=== PATIENT | female | born 1940 | race Caucasian/White ===

== ENCOUNTER 2017-12-25 12:24 | Emergency (ER) | payer OTHER ==
[~2017-12-25] VITALS: Ht 157.5 cm; Wt 84.0 kg
[~2017-12-25 12:24] MED LIST: CALCTAB5 PO; CHOL2000 PO; PHYT500C PO
[2017-12-25 12:32] VITALS: TEMP 36.3; Ht 157.5 cm; Wt 84.0 kg
[2017-12-25] MEDS ORDERED: SODIUM CHLORIDE 0.9% 1000ML 1,000 ML IV STA (12:53)
[2017-12-25] MEDS ORDERED: SODIUM CHLORIDE 0.9% 500ML 500 ML IV STA (13:22)
[2017-12-25] MEDS ORDERED: ONDANSETRON INJ 2 MG/ML 2 ML VIAL IV STA (13:22)
--- NOTE | 2017-12-25 13:53 | DIAGNOSTIC IMAGING REPORT ---
CHEST ONE VIEW PORTABLE CLINICAL HISTORY: 77 years-old Female presenting with EVALUATE WEAKNESS. TECHNIQUE: Portable upright AP view of the chest was obtained. COMPARISON: 08/31/2015. FINDINGS: Atherosclerosis of aortic arch. Cardiac silhouette enlarged. Right retrocardiac opacity, indeterminate. No other focal opacity. No large pleural effusion or pneumothorax. Osseous structures normal. Upper abdomen normal. IMPRESSION: 1. Possible right retrocardiac opacity, which may have been present on prior exam, possibly vascular in etiology. Apart from this, no convincing evidence of acute cardiopulmonary disease. Electronically signed by: Gavin Kirkland M.D. 12/25/2017 1:52 PM Dictated Date/Time: 12/25/2017 1:50 PM
[2017-12-25 14:10] LABS: BASO % 0.2 %; BASO ABS # 0.03 K/uL (0-0.2); EOS % 0.7 %; HEMATOCRIT 41.5 % (37-47); HEMOGLOBIN 14.2 g/dL (12.0-16.0); IG# 0.06 K/uL (0.00-0.02); LYMPH % 8.7 %; LYMPH ABS # 1.31 K/uL (1.2-3.4); MEAN CELL VOLUME 95.8 fL (80-100); MEAN CORPUSCULAR HEMOGLOBIN 32.8 pg (25-34); MEAN CORPUSCULAR HGB CONC 34.2 g/dl (32-36); MEAN PLATELET VOLUME 9.3 fL (7.4-10.4); MONO % 4.7 %; MONO ABS # 0.71 K/uL (0.11-0.59); NEUT % 85.3 %; PLATELET COUNT 360 K/uL (130-400); RED CELL DISTRIBUTION WIDTH CV 12.5 % (11.5-14.5); RED CELL DISTRIBUTION WIDTH SD 43.8 fL (36.4-46.3); WHITE BLOOD COUNT 15.11 K/uL (4.8-10.8)
[2017-12-25] MEDS ORDERED: FSM70 PO (14:33)
[2017-12-25 14:40] LABS: ALBUMIN 3.9 gm/dl (3.4-5.0); ALKALINE PHOSPHATASE 76 U/L (45-117); ALT/SGPT 23 U/L (12-78); BLOOD UREA NITROGEN 21 mg/dl (7-18); CALCIUM 9.8 mg/dl (8.5-10.1); CARBON DIOXIDE 21 mmol/L (21-32); CKMB 1.6 ng/ml (0.5-3.6); CREATININE 0.88 mg/dl (0.60-1.20); GLUCOSE 119 mg/dl (70-99); SODIUM 139 mmol/L (136-145); TOTAL PROTEIN 7.6 gm/dl (6.4-8.2)
--- NOTE | 2017-12-25 15:07 | DIAGNOSTIC IMAGING REPORT ---
ABDOMEN AND PELVIS CT WITHOUT CONTRAST CT DOSE: 716.97 mGy.cm HISTORY: Acute vomiting and diarrhea vomiting and diarrhea. h.o diverticulitis TECHNIQUE: Multiaxial CT images of the abdomen and pelvis were performed without contrast. A dose lowering technique was utilized adhering to the principles of ALARA. COMPARISON STUDY: None. FINDINGS: Mild dependent subsegmental bibasilar atelectasis. There is no pneumatosis or pneumoperitoneum identified. Imaged inferior cardiac chambers are unremarkable. Evaluation of the solid abdominal organs is limited without the use of contrast. The liver, spleen, pancreas and right adrenal gland are unremarkable. 10 x 7 mm low attenuating lesion of the left adrenal gland suggests adenoma. Layering increased attenuation within the gallbladder lumen suggests gallbladder sludge there is also suggestion of mild gallbladder wall thickening. Kidneys, ureters and urinary bladder are unremarkable. Uterus and adnexa are also within normal limits. There is mild atherosclerosis of the aorta without aneurysm. No bulky adenopathy identified. Small sliding-type hiatal hernia. There is no bowel obstruction identified. There is mild wall thickening of the rectum and mid sigmoid colon with mild inflammatory stranding and trace free pelvic fluid as seen on image 287 series 3. Extensive colonic diverticulosis without definite evidence of acute diverticulitis. The appendix appears normal. The soft tissues are unremarkable. The bones appear intact. 5 mm anterolisthesis L4 on L5 likely secondary to associated long-standing severe facet arthropathy. IMPRESSION: 1. Mild wall thickening of the rectum and mid sigmoid colon with mild surrounding inflammatory stranding and trace free pelvic fluid suggests a mild colitis/proctitis from infectious, inflammatory or ischemic etiology. 2. Extensive colonic diverticulosis without definite CT evidence of acute diverticulitis. 3. Mild layering gallbladder sludge with suggestion of mild gallbladder wall thickening. This could be further evaluated with a right upper quadrant abdominal ultrasound if of further clinical concern. 4. Small sliding type hiatal hernia. 5. No bowel obstruction or pneumoperitoneum. Electronically signed by: Bryan Bright M.D. 12/25/2017 3:06 PM Dictated Date/Time: 12/25/2017 2:58 PM
[2017-12-25 15:42] LABS: PTT PATIENT 22.6 SECONDS (21.0-31.0)
[2017-12-25 15:49] LABS: AST/SGOT 20 U/L (15-37); CKMB 1.4 ng/ml (0.5-3.6)
--- NOTE | 2017-12-25 17:47 | DIAGNOSTIC IMAGING REPORT ---
ABDOMINAL ULTRASOUND, RIGHT UPPER QUADRANT HISTORY: Abnormal gallbladder on recent CT.. COMPARISON: Abdomen and pelvis CT 12/25/2017. FINDINGS: Pancreas: The pancreatic tail is obscured by overlying bowel gas. The remaining portions of the pancreas are within normal limits. Liver: The liver is echogenic consistent with fatty change. Gallbladder: No gallbladder wall thickening. There is a small polyp measuring 4 mm. CBD: 4 mm Right kidney: No hydronephrosis. IMPRESSION: 1. No gallbladder wall thickening. A 4 mm gallbladder polyp. No gallstones. 2. Mild hepatic steatosis. Electronically signed by: Lawrence Self M.D. 12/25/2017 5:45 PM Dictated Date/Time: 12/25/2017 5:43 PM
[2017-12-25] MEDS ORDERED: ONDANSETRON HOME PACK 4MG OD TAB PO ONE (19:00)
[2017-12-25 20:10] VITALS: BP 132/88; PULSE 88; O2SAT 99
--- NOTE | 2017-12-25 21:56 | EMERGENCY ROOM VISIT NOTE ---
History Report prepared by Mary Alice: Alex Hunt Under the Supervision of: Dr. Raymundo Sidhu M.D. First contact with patient: 12:31 Chief Complaint: ILLNESS Stated Complaint: ILLNESS History of Present Illness The patient is a 77 year old female who presents to the Emergency Room with complaints of intermittent vomiting that began this today. The patient reports that she had flu-like symptoms two weeks ago. She reports that she is "prone to diverticulitis" and was experiencing left lower quadrant abdominal pain a couple of days ago. The patient reports that she was careful of what she ate and her pain resolved. She states all of her symptoms resolved and she was fine yesterday. She reports she went to an el? restaurant last night and admits she experienced some mild diarrhea. 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 She reports she started to experience nausea, diaphoresis, and dizziness during her class. The patient states that after the class, she vomited 5-6 times and has still been experiencing diarrhea. She states that she has not been able to keep down water without vomiting. The patient states that when she is not vomiting up fluid or food, she has been dry heaving. She reports that she has also been experiencing shortness of breath last week when she was recovering from the flu. She notes that her respiratory issues have been improving and only has a minimal cough. She states that she is currently experiencing chills. The patient denies LOC, headache, fevers, diaphoresis, visual changes, neck pain, chest pain, current breathing difficulties, abdominal pain, back pain, melena, hematochezia, urinary symptoms , numbness, weakness, lymphadenopathy, rash, or other complaints. The patient reports a history of diverticulitis. Source of History: patient Onset: today Position: other (global) Quality: other (global) Timing: intermittent Associated Symptoms: + chills, + diaphoresis, + SOB, + nausea, + abdominal pain (resolved), + diarrhea Review of Systems See HPI for pertinent positives and negatives. A total of ten systems were reviewed and were otherwise negative. Family History Cancer Social History Smoking Status: Never Smoker Alcohol Use: none Drug Use: none Marital Status: Housing Status: lives with significant other Occupation Status: retired Current/Historical Medications Scheduled Alendronate Sodium (Alendronate Sodium), 70 MG PO WK Calcium (Caltrate), 600 MG PO DAILY Cholecalciferol (Vitamin D3), 1 CAP PO DAILY Allergies Coded Allergies: POLLEN (Verified Allergy, Intermediate, ITCHING EYES, RHINITIS, SNEEZING, 12/25/17) Physical Exam Vital Signs Date Time Temp Pulse Resp B/P (MAP) Pulse Ox O2 Delivery O2 Flow Rate FiO2 12/25/17 20:10 88 20 132/88 99 12/25/17 18:57 75 16 115/76 98 Room Air 12/25/17 17:25 82 16 101/72 96 Room Air 12/25/17 15:30 90 16 91/68 96 Room Air 12/25/17 13:11 74 121/74 78 118/87 77 126/73 12/25/17 13:09 77 12/25/17 12:32 36.3 74 22 120/58 100 Physical Exam GENERAL: Awake, alert, uncomfortable appearing, in no distress. HENT: Normocephalic, atraumatic. Oropharynx unremarkable. EYES: Normal conjunctiva. Sclera non-icteric. NECK: Supple. No nuchal rigidity. FROM. No masses. RESPIRATORY: Clear to auscultation. No wheezes. CARDIAC: Normal rate. Normal rhythm. No murmurs. No rubs. Extremities warm and well perfused. Pulses equal. No JVD. GI: Soft, non-distended. No tenderness to palpation. No rebound or guarding. No masses. RECTAL: Deferred. MUSCULOSKELETAL: Atraumatic. minimal generalized discomfort, no focal tenderness. Chest examination reveals no tenderness. . There is no CVA tenderness to palpation. No joint edema. LOWER EXTREMITIES: Calves are equal size bilaterally and non-tender. No edema. No discoloration. NEURO: Normal sensorium. No sensory or motor deficits noted. SKIN: No rash or jaundice noted. Medical Decision & Procedures ER Provider Diagnostic Interpretation: Radiology results as stated below per my review and radiologist interpretation: CHEST ONE VIEW PORTABLE CLINICAL HISTORY: 77 years-old Female presenting with EVALUATE WEAKNESS. TECHNIQUE: Portable upright AP view of the chest was obtained. COMPARISON: 08/31/2015. FINDINGS: Atherosclerosis of aortic arch. Cardiac silhouette enlarged. Right retrocardiac opacity, indeterminate. No other focal opacity. No large pleural effusion or pneumothorax. Osseous structures normal. Upper abdomen normal. IMPRESSION: 1. Possible right retrocardiac opacity, which may have been present on prior exam, possibly vascular in etiology. Apart from this, no convincing evidence of acute cardiopulmonary disease. Electronically signed by: Gavin Kirkland M.D. 12/25/2017 1:52 PM Dictated Date/Time: 12/25/2017 1:50 PM [address]OMEN AND PELVIS CT WITHOUT CONTRAST CT DOSE: 716.97 mGy.cm HISTORY: Acute vomiting and diarrhea vomiting and diarrhea. h.o diverticulitis TECHNIQUE: Multiaxial CT images of the abdomen and pelvis were performed without contrast. A dose lowering technique was utilized adhering to the principles of ALARA. COMPARISON STUDY: None. FINDINGS: Mild dependent subsegmental bibasilar atelectasis. There is no pneumatosis or pneumoperitoneum identified. Imaged inferior cardiac chambers are unremarkable. Evaluation of the solid abdominal organs is limited without the use of contrast. The liver, spleen, pancreas and right adrenal gland are unremarkable. 10 x 7 mm low attenuating lesion of the left adrenal gland suggests adenoma. Layering increased attenuation within the gallbladder lumen suggests gallbladder sludge there is also suggestion of mild gallbladder wall thickening. Kidneys, ureters and urinary bladder are unremarkable. Uterus and adnexa are also within normal limits. There is mild atherosclerosis of the aorta without aneurysm. No bulky adenopathy identified. Small sliding-type hiatal hernia. There is no bowel obstruction identified. There is mild wall thickening of the rectum and mid sigmoid colon with mild inflammatory stranding and trace free pelvic fluid as seen on image 287 series 3. Extensive colonic diverticulosis without definite evidence of acute diverticulitis. The appendix appears normal. The soft tissues are unremarkable. The bones appear intact. 5 mm anterolisthesis L4 on L5 likely secondary to associated long-standing severe facet arthropathy. IMPRESSION: 1. Mild wall thickening of the rectum and mid sigmoid colon with mild surrounding inflammatory stranding and trace free pelvic fluid suggests a mild colitis/proctitis from infectious, inflammatory or ischemic etiology. 2. Extensive colonic diverticulosis without definite CT evidence of acute diverticulitis. 3. Mild layering gallbladder sludge with suggestion of mild gallbladder wall thickening. This could be further evaluated with a right upper quadrant abdominal ultrasound if of further clinical concern. 4. Small sliding type hiatal hernia. 5. No bowel obstruction or pneumoperitoneum. Electronically signed by: Bryan Bright M.D. 12/25/2017 3:06 PM Dictated Date/Time: 12/25/2017 2:58 PM ABDOMINAL ULTRASOUND, RIGHT UPPER QUADRANT HISTORY: Abnormal gallbladder on recent CT.. COMPARISON: Abdomen and pelvis CT 12/25/2017. FINDINGS: Pancreas: The pancreatic tail is obscured by overlying bowel gas. The remaining portions of the pancreas are within normal limits. Liver: The liver is echogenic consistent with fatty change. Gallbladder: No gallbladder wall thickening. There is a small polyp measuring 4 mm. CBD: 4 mm Right kidney: No hydronephrosis. IMPRESSION: 1. No gallbladder wall thickening. A 4 mm gallbladder polyp. No gallstones. 2. Mild hepatic steatosis. Electronically signed by: Lawrence Self M.D. 12/25/2017 5:45 PM Dictated Date/Time: 12/25/2017 5:43 PM Laboratory Results 12/25/17 14:00 Red Blood Count 4.33, Mean Corpuscular Volume 95.8, Mean Corpuscular Hemoglobin 32.8, Mean Corpuscular Hemoglobin Concent 34.2, Mean Platelet Volume 9.3, Neutrophils (%) (Auto) 85.3, Lymphocytes (%) (Auto) 8.7, Monocytes (%) (Auto) 4.7, Eosinophils (%) (Auto) 0.7, Basophils (%) (Auto) 0.2, Neutrophils # (Auto) 12.90, Lymphocytes # (Auto) 1.31, Monocytes # (Auto) 0.71, Eosinophils # (Auto) 0.10, Basophils # (Auto) 0.03 12/25/17 14:00 12/25/17 15:07 Test 12/25/17 13:49 12/25/17 14:00 12/25/17 15:07 Urine Color YELLOW Urine Appearance CLOUDY (CLEAR) Urine pH 8.5 (4.5-7.5) Urine Specific Garber 1.017 (1.000-1.030) Urine Protein NEG (NEG) Urine Glucose (UA) NEG (NEG) Urine Ketones 2+ (NEG) Urine Occult Blood NEG (NEG) Urine Nitrite NEG (NEG) Urine Bilirubin NEG (NEG) Urine Urobilinogen NEG (NEG) Urine Leukocyte Esterase NEG (NEG) Urine WBC (Auto) 1-5 /hpf (0-5) Urine RBC (Auto) 0-4 /hpf (0-4) Urine Hyaline Casts (Auto) 10-30 /lpf (0-5) Urine Epithelial Cells (Auto) >30 /lpf (0-5) Urine Bacteria (Auto) NEG (NEG) Urine Renal Epithelial Cells /lpf (0-5) Urine Crystals AMORPHOUS SEDIMENT (NONE White Blood Count 15.11 K/uL (4.8-10.8) Red Blood Count 4.33 M/uL (4.2-5.4) Hemoglobin 14.2 g/dL (12.0-16.0) Hematocrit 41.5 % (37-47) Mean Corpuscular Volume 95.8 fL (80-100) Mean Corpuscular Hemoglobin 32.8 pg (25-34) Mean Corpuscular Hemoglobin Concent 34.2 g/dl (32-36) Platelet Count 360 K/uL (130-400) Mean Platelet Volume 9.3 fL (7.4-10.4) Neutrophils (%) (Auto) 85.3 % Lymphocytes (%) (Auto) 8.7 % Monocytes (%) (Auto) 4.7 % Eosinophils (%) (Auto) 0.7 % Basophils (%) (Auto) 0.2 % Neutrophils # (Auto) 12.90 K/uL (1.4-6.5) Lymphocytes # (Auto) 1.31 K/uL (1.2-3.4) Monocytes # (Auto) 0.71 K/uL (0.11-0.59) Eosinophils # (Auto) 0.10 K/uL (0-0.5) Basophils # (Auto) 0.03 K/uL (0-0.2) RDW Standard Deviation 43.8 fL (36.4-46.3) RDW Coefficient of Variation 12.5 % (11.5-14.5) Immature Granulocyte % (Auto) 0.4 % Immature Granulocyte # (Auto) 0.06 K/uL (0.00-0.02) Anion Gap 11.0 mmol/L (3-11) Est Creatinine Clear Calc Drug Dose 54.7 ml/min Estimated GFR () 74.0 Estimated GFR (Non- 63.8 BUN/Creatinine Ratio 23.9 (10-20) Calcium Level 9.8 mg/dl (8.5-10.1) Total Bilirubin 0.6 mg/dl (0.2-1) Alanine Aminotransferase (ALT/SGPT) 23 U/L (12-78) Alkaline Phosphatase 76 U/L (45-117) Troponin I < 0.015 ng/ml (0-0.045) Total Protein 7.6 gm/dl (6.4-8.2) Albumin 3.9 gm/dl (3.4-5.0) Thyroid Stimulating Hormone (TSH) 4.940 uIu/ml (0.300-4.500) Prothrombin Time 10.4 SECONDS (9.0-12.0) Prothromb Time International Ratio 1.0 (0.9-1.1) Activated Partial Thromboplast Time 22.6 SECONDS (21.0-31.0) Partial Thromboplastin Ratio 0.9 Magnesium Level 2.2 mg/dl (1.8-2.4) Direct Bilirubin < 0.1 mg/dl (0-0.2) Aspartate Amino Transf (AST/SGOT) 20 U/L (15-37) Total Creatine Kinase 74 U/L (26-192) Creatine Kinase MB 1.4 ng/ml (0.5-3.6) Creatine Kinase MB Ratio 1.9 (0-3.0) Laboratory results reviewed by me Medications Administered Medications (Trade) Dose Ordered Sig/Zoya Route Start Time Stop Time Status Last Admin Dose Admin Sodium Chloride 1,000 ml @ 125 mls/hr Q8H STAT IV 12/25/17 12:53 12/25/17 20:46 DC 12/25/17 14:31 125 MLS/HR Sodium Chloride 500 ml @ 999 mls/hr Q31M STAT IV 12/25/17 13:22 12/25/17 13:52 DC 12/25/17 14:06 999 MLS/HR Ondansetron HCl (Zofran Inj) 4 mg NOW STAT IV 12/25/17 13:22 12/25/17 13:23 DC 12/25/17 14:04 4 MG Ondansetron HCl (ZOFRAN ODT 4MG Home Pack) 1 homepack UD ONCE PO 12/25/17 19:00 12/25/17 19:01 DC 12/25/17 20:05 1 HOMEPACK ECG Per My Interpretation Indication: vomiting Rate (beats per minute): 75 Rhythm: sinus rhythm Findings: PVC, no acute ischemic change, other (normal intervals) ED Course 1253: Ordered Sodium Chloride 1000 ml @ 125 mls/hr IV. 1317: The patient was evaluated in room B06. A complete history and physical exam was performed. 1322: Ordered Zofran Injection 4 mg IV, Sodium Chloride 500 ml @ 999 mls/hr IV. 1559: I reevaluated the patient and she is doing better. 1855: I reevaluated the patient and she is doing well. She was able to ambulate with no problem and she is stable. Her intake was tolerated and she is ready for discharge. 1900: Ondansetron HCl 1 homepack PO. Medical Decision Prior records/ancillary studies reviewed. Triage Nursing notes reviewed and agree them. The patient's history was concerning for nausea, vomiting, diarrhea. Differential diagnosis: Etiologies such as gastroenteritis, food borne illness, infections, appendicitis , diverticulitis, inflammatory bowel disease, GI bleed, biliary pathology, as well as others were entertained. Physical examination findings: As above. Benign abdomen. ER treatment provided: IV hydration IV Zofran On reassessment the patient felt much better. Patient was tolerating p.o. intake. Diagnostics interpretation by me: ECG: Unremarkable as above. No ischemia. The labs revealed a slight leukocytosis on CBC. Chemistry panel was unremarkable. Urinalysis negative. Cardiac markers negative. Imaging studies: Chest x-ray, CT scan and ultrasound as above. The patient notes developing some diarrhea after eating out last night. She then had continued diarrhea and vomiting developed today. She was treated with IV Zofran and hydrated. She did very well with this. She had some imaging performed. There is no significant acute findings on chest x-ray. No evidence of pneumonia. She had a CT scan which shows some possible mild colitis but no evidence of diverticulitis. This would fit with her diarrheal illness. There has been no recent antibiotic use. The patient did not have any evidence of obstruction or appendicitis. The gallbladder appeared somewhat abnormal and radiology recommended ultrasonography. This was performed and was unremarkable. Repeat evaluation did not reveal any significant concerns. The patient was given an oral challenge and did very well with this. She ambulated. She felt much better. She was observed for almost 6 hours in order to complete her imaging and due to volume in the Emergency Room. She felt much better. Her symptoms had resolved. Conservative management was discussed and she felt comfortable. She worsens in any way she will be back. I gave my usual and customary discussion regarding this issue. By the evaluation outlined above other emergent etiologies such as those listed in the differential, as well as others, were deemed relatively unlikely. The patient was educated about the findings as listed above. All questions were answered and the patient was pleased with the treatment. Return instructions were outlined and the patient was discharged in stable condition. The patient was referred to her PCP for follow-up for a recheck of the current condition. Medication Reconcilliation Current Medication List: was personally reviewed by me Blood Pressure Screening Patient's blood pressure: Normal blood pressure Impression Primary Impression: Vomiting Additional Impression: Diarrhea Scribe Attestation The scribe's documentation has been prepared under my direction and personally reviewed by me in its entirety. I confirm that the note above accurately reflects all work, treatment, procedures, and medical decision making performed by me. Departure Information Dispostion Home / Self-Care Referrals Mika Dobbins M.D.([facility]) (PCP) Forms HOME CARE DOCUMENTATION FORM, IMPORTANT VISIT INFORMATION, WORK / SCHOOL INSTRUCTIONS Patient Instructions My [facility] Additional Instructions VOMITING INSTRUCTIONS: Zofran(odansetron) tablets 4mg: Take one and allow it to dissolve in your mouth every four to six hours as needed for nausea or vomiting. Acetaminophen(Tylenol) may be used for fever or pain. Use 1000mg every six hours as needed. Avoid using more than 4000mg in a 24 hour period. Rest and drink plenty of fluids as tolerated. Slow sips of water or sports drinks are recommended instead of large amounts all at once. Continue current medications. Once your stomach is settled start with a clear liquid diet (jello, soup broth, etc.) and then advance as tolerated. You should avoid full, heavy meals for about 24 hrs from the time your symptoms resolved. Return to the ER for persistent vomiting, fevers, abdominal pain, chest pains, difficulty breathing, black or bloody stools, worsening of your condition, or as needed. Follow up with your primary physician in 2-3 days for a recheck of your current condition Problem Qualifiers
== END 2017-12-25 20:12 | disposition home or self-care (01) ==
LOC: EDBD 12:24 → C.EDB 12:25
DX: R11.2 Nausea with vomiting, unspecified (principal); R19.7 Diarrhea, unspecified